=== PATIENT | female | born 1990 | race African-American/Black ===

== ENCOUNTER 2019-03-04 01:27 | Emergency (ER) | payer SELFPAY ==
[2019-03-04 02:05] VITALS: BMI 34.8
[2019-03-04] MEDS ORDERED: ALBUTEROL SO4 2.5/IPRATROPIUM 0.5 INH SOL 3 ML VIAL.NEB. NEB ONE ×2 (02:07→02:12)
[2019-03-04] MEDS ORDERED: ACETAMINOPHEN 500 MG TABLET (FP) PO ONE (02:07)
--- NOTE | 2019-03-04 02:10 | PDOC ---
History of Present Illness <Edie Grady - Last Filed: 03/04/19 02:42> - General History Source: Patient Exam Limitations: No Limitations - History of Present Illness Initial Comments: 03/04/19 02:08 HISTORY OF PRESENT ILLNESS: This a 28-year-old woman with past medical history of asthma (no intubations; 7-8 annual visits for asthma) presents to the emergency department for evaluation of 3 days of fevers, chills, body aches, sore throat, moist productive cough. Patient denies any sick contacts but states she did not receive her influenza vaccine this year. She denies any respiratory distress, shortness of breath, wheezing, chest pain, dysuria, hematuria, diarrhea. No recent travel or sick contacts. PAST MEDICAL HISTORY: Asthma SURGICAL HISTORY: Denies ALLERGIES: No known drug allergies REVIEW OF SYSTEMS General/Constitutional: +fever. Denies weakness, weight change. HEENT: Denies change in vision. Denies ear pain or discharge. +sore throat. Cardiovascular: Denies chest pain or shortness of breath. Respiratory: Moist productive cough. Denies wheezing, or hemoptysis. Gastrointestinal: Denies nausea, vomiting, diarrhea or constipation. Denies rectal bleeding. Genitourinary: Denies dysuria, frequency, or change in urination. Musculoskeletal: +myalgias. Denies neck or back pain. Skin and breasts: Denies rash or easy bruising. Neurologic: Denies headache, vertigo, loss of consciousness, or loss of sensation. Psychiatric: Denies depression or anxiety. Endocrine: Denies increased thirst. Denies abnormal weight change. Hematologic/Lymphatic: Denies anemia, easy bleeding, or history of blood clots. Allergic/Immunologic: Denies hives or skin allergy. Denies latex allergy. PHYSICAL EXAM General Appearance: Well-appearing, appropriately dressed. No apparent distress , no intoxication. HEENT: EOMI, PERRLA, normal voice, TMs retracted bilaterally. No conjunctival pallor. No photophobia, scleral icterus. Oropharynx erythematous without lesions or exudate. Cobblestoning noted in the posterior. No nasal discharge present. Neck: Supple. Trachea midline. No tenderness, rigidity, carotid bruit, stridor , or thyromegaly. Nontender anterior cervical lymphadenopathy present. Respiratory/Chest: Lungs CTAB. No shortness of breath, chest tenderness, respiratory distress, accessory muscle use. No crackles, rales, rhonchi, stridor , wheezing, dullness Cardiovascular: RRR. S1, S2. No JVD, murmur, bradycardia, tachycardia. Vascular Pulses: Dorsalis-Pedis (R): 2+, Dorsalis-Pedis (L): 2+ Gastrointestinal/Abdominal: Normal bowel sounds. Abdomen soft, non-distended. No tenderness or rebound tenderness. No organomegaly, pulsatile mass, guarding, hernia, hepatomegaly, splenomegaly. Musculoskeletal/Extremities: Normal inspection. FROM of all extremities, normal capillary refill. Pelvis Stable. No CVA tenderness. No tenderness to extremities, pedal edema, swelling, erythema or deformity. Integumentary: Appropriate color, dry, warm. No cyanosis, erythema, jaundice or rash Neurologic: student counsellor II-XII intact. Fully oriented, alert. Appropriate mood/affect. Motor strength 5/5. No appreciable EOM palsy, facial droop or sensory deficit. <Bartolome Mccord - Last Filed: 03/04/19 02:54> - General Chief Complaint: Cold Symptoms Stated Complaint: FLU LIKE SYMPTOMS Time Seen by Provider: 03/04/19 02:03 Past History <Edie Grady - Last Filed: 03/04/19 02:42> - Psycho Social/Smoking Cessation Hx Smoking History: Never smoked Hx Alcohol Use: No Drug/Substance Use Hx: No <Bartolome Mccord - Last Filed: 03/04/19 02:54> - Past Medical History Allergies/Adverse Reactions: Allergies Allergy/AdvReac Type Severity Reaction Status Date / Time No Known Allergies Allergy Verified 03/04/19 02:05 Home Medications: Ambulatory Orders Oseltamivir Phosphate [Tamiflu -] 75 mg PO BID #10 capsule 03/04/19 *Physical Exam - Vital Signs Last Vital Signs Temp Pulse Resp BP Pulse Ox 100.0 F H 95 H 20 115/72 98 03/04/19 02:03 03/04/19 02:03 03/04/19 02:03 03/04/19 02:03 03/04/19 02:03 <Edie Grady - Last Filed: 03/04/19 02:42> - Vital Signs Last Vital Signs Temp Pulse Resp BP Pulse Ox 00/00 L 03/04/19 02:03 <Bartolome Mccord - Last Filed: 03/04/19 02:54> ED Treatment Course - Medications Given in the ED: ED Medications Discontinued Medications Generic Name Dose Route Start Last Admin Trade Name Trini PRN Reason Stop Dose Admin Acetaminophen 1,000 mg 03/04/19 02:07 03/04/19 02:24 Tylenol - PO 03/04/19 02:08 1,000 mg ONCE ONE Administration Albuterol/Ipratropium 1 amp 03/04/19 02:07 03/04/19 02:16 Duoneb - NEB 03/04/19 02:08 1 amp ONCE ONE Administration <Edie Grayd - Last Filed: 03/04/19 02:42> Medical Decision Making - Medical Decision Making The patient was seen and evaluated in conjunction with midlevel provider under my direct supervision, ancillary studies were reviewed. I agree with the plan as outlined with [employer]. HPI, workup/dispo as outlined. VS reviewed, wnl. + LGF. asthma history, +flu B treat with tamiflu given chronic lung condition. supportive care, hydration, contact precautions and hand hygiene anticipate discharge, pcp followup, return precautions 03/04/19 02:42 <Edie Grady - Last Filed: 03/04/19 02:42> - Medical Decision Making 03/04/19 02:09 A/P: 28-year-old woman with 3 days of influenza-like illness This patient is an asthmatic I will test for influenza and if positive will treat with Tamiflu. DuoNeb x1 Tylenol 1 g orally now Reassess 03/04/19 02:48 Influenza B positive. I will discharge patient home with prescription for Tamiflu instructions for supportive treatment of symptoms. I discussed the physical exam findings, ancillary test results and final diagnoses with the patient. I answered all of the patient's questions. The patient was satisfied with the care received and felt comfortable with the discharge plan and treatment plan. The patient will call their primary care physician within 24 hours to arrange follow-up and will return to the Emergency Department with any new, persistent or worsening symptoms. <Bartolome Mccord - Last Filed: 03/04/19 02:54> Discharge <Edie Grady - Last Filed: 03/04/19 02:42> - Discharge Information Problems reviewed: Yes - Admission No <Bartolome Mccord - Last Filed: 03/04/19 02:54> - Discharge Information Clinical Impression/Diagnosis: Influenza B Condition: Fair Disposition: HOME - Additional Discharge Information Prescriptions: Oseltamivir Phosphate [Tamiflu -] 75 mg PO BID #10 capsule - Follow up/Referral Referrals: Chito Ritchie MD [Primary Care Provider] - Ruben San MD [Staff Physician] - - Patient Discharge Instructions Additional Instructions: Rest, drink lots of fluids: Teas, water, soups, Pedialyte Saltwater gargles Steamy showers/seem to face break up mucus Old-fashioned treatments help! Avoid contact with others until fevers and cough resolved as this is very contagious Lots of handwashing and good hygiene Continue [id number] medications for symptomatic relief Tylenol or Motrin for fever and pain Take all of Tamiflu as directed: 1 tab every 12 hours for 5 days Followup with private physician in one to 2 days as needed or if worsening Return to emergency department for worsened symptoms, fevers, dehydration Influenza takes between 5 and 7 days for resolution Do not participate in any activity, work, or school until fevers and cough are gone for at least one day - Post Discharge Activity Work/Back to School Note: Back to Work
[2019-03-04 02:11] VITALS: BP 115/72; PULSE 95; TEMP 100
[2019-03-04] MEDS ORDERED: ACETAMINOPHEN 500 MG TABLET (FP) ONE (02:20)
== END 2019-03-04 02:57 | disposition home or self-care (01) ==
LOC: JER 01:27
PROC: 3E0F7GC Introduction of Other Therapeutic Substance into Respiratory Tract, Via Natural or Artificial Opening (ICD-10-PCS; principal; 2019-03-04)
DX: J10.1 Influenza due to other identified influenza virus with other respiratory manifestations (principal)
CPT/HCPCS: 87804; 99282-25